=== PATIENT | male | born 1970 | race Caucasian/White ===

== ENCOUNTER 2020-07-17 09:00 | Day surgery (SDC) | payer OTHER, SELFPAY ==
[~2020-07-17] VITALS: Ht 175.3 cm; Wt 96.2 kg
[~2020-07-17 09:00] MED LIST: CEFAZOLIN SOD 1 GM in D5W 50 ML IV ONE
[2020-07-17] MEDS ORDERED: MIDAZOLAM HCL 2 MG/2 ML VIAL (VERSED) IVP PRN (13:15)
[2020-07-17] MEDS ORDERED: HYDROmorphone 1 INJ. 1 MG/ML CARTRIDGE IVP PRN ×2 (13:15)
[2020-07-17] MEDS ORDERED: ONDANSETRON HCL 4 MG/2 ML VIAL IVP PRN (13:15)
[2020-07-17] MEDS ORDERED: MEPERIDINE HCL/PF 25 MG/ML DISP.SYRIN IVP PRN (13:15)
[2020-07-17] MEDS ORDERED: METOCLOPRAMIDE HCL 10 MG/2 ML VIAL IVP PRN (13:15)
[2020-07-17] MEDS ORDERED: LABETALOL 100 MG/ 20ML VIAL IVP PRN (13:15)
[2020-07-17] MEDS ORDERED: hydrALAZINE HCL 20 MG/ML VIAL IVP PRN (13:15)
[2020-07-17] MEDS ORDERED: LR 1,000 ML IV SCH (13:15)
[2020-07-17] MEDS ORDERED: D5/0.45 NS 1,000 ML IV SCH (14:00)
[2020-07-17] MEDS ORDERED: HYDROcodone/ACETAMIN 5-325 MG TAB (NORCO/ VICODIN) PO PRN (14:00)
[2020-07-17 16:21] VITALS: BP_SYST 140
== END 2020-07-17 15:40 | disposition home or self-care (01) ==
LOC: SDS 09:00 → EDSEX 09:00 → SDS 15:40
PROVIDERS: ATTEND Colon & Rectal Surgery
DX: L98.0 Pyogenic granuloma (principal); G47.33 Obstructive sleep apnea (adult) (pediatric); J45.909 Unspecified asthma, uncomplicated; E66.9 Obesity, unspecified; E78.5 Hyperlipidemia, unspecified; K21.9 Gastro-esophageal reflux disease without esophagitis; Z79.899 Other long term (current) drug therapy
CPT/HCPCS: 11422; 36415; 87426; 88304; J0690; J7060; J7120